=== PATIENT | female | born 1965 | race American Indian/Alaskan Native ===

== ENCOUNTER 2020-05-12 06:39 | Emergency (ER) | payer SELFPAY ==
[2020-05-12 06:48] VITALS: BP 162/86
[2020-05-12] MEDS ORDERED: KETOROLAC 30 MG/1 ML INJ IM ONE (08:00)
[2020-05-12] MEDS ORDERED: dexAMETHasone 20 MG/5 ML VIAL IM ONE (08:00)
--- NOTE | 2020-05-12 08:00 | Emergency Department Report ---
ED General Adult HPI - General Chief complaint: Extremity Injury, Lower Stated complaint: HIP/LEG/KNEE/FOOT PAIN Time Seen by Provider: 05/12/20 07:28 Source: patient Mode of arrival: Ambulatory Limitations: No Limitations - History of Present Illness Initial comments: 54-year-old -[place] Citizen female patient presents with complaints of bilateral buttock pain radiating down her legs, worse on the right x1 week, worsening for the past few days. She states ibuprofen helps some. Pain worsens with sitting on her butt. She denies any injuries to her back, numbness/tingling/weakness in her limbs, loss of bladder/bowel control, hematochezia/hematuria, or difficulty moving her legs. Patient rates her pain as a 9/10 in severity. - Related Data Previous Rx's Medication Instructions Recorded Last Taken Type Acetaminophen/Codeine [Tylenol 1 tab PO Q8H PRN #10 tab 05/12/20 Unknown Rx /Codeine # 3 tab] Diclofenac Sodium 50 mg PO TID PRN #21 tablet. 05/12/20 Unknown Rx methOCARBAMOL [Robaxin TAB] 1,500 mg PO Q8H PRN #30 tablet 05/12/20 Unknown Rx Allergies Allergy/AdvReac Type Severity Reaction Status Date / Time acetaminophen Allergy Hives Verified 05/12/20 06:52 [From Darvocet-N] propoxyphene Allergy Hives Verified 05/12/20 06:52 [From Darvocet-N] ED Review of Systems ROS: Stated complaint: HIP/LEG/KNEE/FOOT PAIN Other details as noted in HPI Constitutional: denies: chills, fever, malaise, weakness Respiratory: denies: shortness of breath Gastrointestinal: denies: abdominal pain Musculoskeletal: denies: joint swelling, arthralgia Skin: denies: change in color Neurological: denies: weakness, numbness, paresthesias, abnormal gait ED Past Medical Hx - Past Medical History Previous Medical History?: Yes Hx Hypertension: Yes Hx Diabetes: Yes (Borderline) - Surgical History Past Surgical History?: Yes Additional Surgical History: Left shoulder - Social History Smoking Status: Current Every Day Smoker Substance Use Type: None - Medications Home Medications: Home Medications Medication Instructions Recorded Confirmed Last Taken Type Acetaminophen/Codeine [Tylenol 1 tab PO Q8H PRN #10 tab 05/12/20 Unknown Rx /Codeine # 3 tab] Diclofenac Sodium 50 mg PO TID PRN #21 tablet. 05/12/20 Unknown Rx methOCARBAMOL [Robaxin TAB] 1,500 mg PO Q8H PRN #30 tablet 05/12/20 Unknown Rx ED Physical Exam - General Limitations: No Limitations General appearance: alert, in no apparent distress - Head Head exam: Present: atraumatic, normocephalic - Eye Eye exam: Absent: scleral icterus - Respiratory Respiratory exam: Absent: respiratory distress - Cardiovascular Cardiovascular Exam: Present: regular rate - Extremities Exam Extremities exam: Present: full ROM - Back Exam Back exam: Present: full ROM. Absent: vertebral tenderness - Expanded Back Exam Expanded Back exam: Absent: saddle anesthesia Back exam: Sciatic Notch Tenderness: Right, Left, Positive Straight Leg Raise: Right - Neurological Exam Neurological exam: Present: alert, oriented X3, normal gait. Absent: motor sensory deficit - Psychiatric Psychiatric exam: Present: normal affect, normal mood - Skin Skin exam: Present: warm, dry, intact, normal color. Absent: rash ED Course Vital Signs 05/12/20 05/12/20 05/12/20 06:41 08:06 08:17 Temperature 97.5 F L Pulse Rate 85 Respiratory 18 18 18 Rate Blood Pressure 162/86 O2 Sat by Pulse 99 Oximetry ED Medical Decision Making - Medical Decision Making 54-year-old -[place] Citizen female patient presents with complaints of bilateral buttock pain radiating down her legs, worse on the right x1 week, worsening for the past few days. She states ibuprofen helps some. Pain worsens with sitting on her butt. She denies any injuries to her back, numbness/ tingling/weakness in her limbs, loss of bladder/bowel control, hematochezia/hematuria, or difficulty moving her legs. Patient rates her pain as a 9/10 in severity. We will treat for sciatica. Discussed need for follow-up with primary care and possible physical therapy. Strict return precautions were discussed in detail with patient who verbalized understanding peer Critical care attestation.: If time is entered above; I have spent that time in minutes in the direct care of this critically ill patient, excluding procedure time. ED Disposition Clinical Impression: Bilateral sciatica Disposition: TO HOME OR SELFCARE Is pt being admited?: No Condition: Stable Instructions: Sciatica Prescriptions: Diclofenac Sodium 50 mg PO TID PRN #21 tablet. PRN Reason: Pain, Moderate (4-6) methOCARBAMOL [Robaxin TAB] 1,500 mg PO Q8H PRN #30 tablet PRN Reason: muscle spasm/tightness Acetaminophen/Codeine [Tylenol /Codeine # 3 tab] 1 tab PO Q8H PRN #10 tab PRN Reason: Pain , Severe (7-10) Referrals: PRIMARY CARE, [Primary Care Provider] - 3-5 Days Forms: Work/School Release Form(ED)
== END 2020-05-12 08:19 | disposition home or self-care (01) ==
LOC: ED 06:39
DX: M54.31 Sciatica, right side (principal); M54.32 Sciatica, left side; I10 Essential (primary) hypertension; E66.9 Obesity, unspecified; F17.200 Nicotine dependence, unspecified, uncomplicated; Z79.899 Other long term (current) drug therapy; Z88.8 Allergy status to other drugs, medicaments and biological substances; Z98.890 Other specified postprocedural states
CPT/HCPCS: 96372; 99282; J1100; J1885